=== PATIENT | female | born 1960 | race Caucasian/White ===

== ENCOUNTER → 2017-07-03 | Outpatient (CLI) | payer MEDICARE ==
[~2017-07-03] MED LIST: CLONAZEPAM 1MG T1 MG PO; METHADONE 10MG10 MG PO; NEURONTIN800 MG PO; NEXIUM20 MG PO; NEXIUM40 MG PO; SILVADENE1% TP; SYNTHROID 0.00.05 MG PO; TIZANIDINE HCL 44 MG PO; XARELTO10 MG PO; ZANAFLEX4 MG; ZANAFLEX4 MG PO
--- NOTE | 2017-07-03 11:21 | CARDIOVASCULAR REPORT ---
"Venous Exam Indications: 729.5 Pain in limb. IMPRESSIONS 1. There is no evidence of significant Reflux. 2. Moderate, acute, occlusive deep vein thrombosis involving the right popliteal vein, right gastrocnemius, and right soleal History: Right lower extremity pain. Edema of the right leg. PMH: Deep vein thrombosis. Patient was taking Xarelto until August 2016. Anticoagulants were stopped due to blood loss/GI bleed at that time. Risk factors: Current tobacco use. Hypertension. Right lower extremity venous duplex evaluation. Doppler flow study including spectral analysis, color and bryan scale imaging. Location: Vascular laboratory. Patient status: Outpatient. CRITICAL FINDINGS - Reported to: Cherrie Iglesias - Read back and verified. - 07/03/17 - 11:10 - RLE positive for DVT in POPV, gastrocnemius veins Tables: Venous flow and imaging: + + + + |Location |Overall |Flow properties | + + + + |Right common femoral |Patent |Normal phasicity; | | | |spontaneous; normal | | | |augmentation; compressible | + + + + |Right saphenofemoral |Patent |Compressible | |junction | | | + + + + |Right profunda femoral |Patent |Compressible | + + + + |Right femoral |Patent |Normal phasicity; | | | |spontaneous; normal | | | |augmentation; compressible | + + + + |Right greater saphenous |Patent |Normal phasicity; | | | |spontaneous; normal | | | |augmentation; compressible | + + + + |Right popliteal |Totally occluded|Absent; no augmentation; | | | |noncompressible | + + + + |Right posterior tibial |Patent |Compressible | + + + + |Right peroneal |Patent |Compressible | + + + + |Right gastrocnemius |Totally occluded|Noncompressible | + + + + |Right soleal |Totally occluded|Noncompressible | + + + + (Report amended ) Electronically signed by: Alen Granados [id number]"
== END ==
LOC: RT 10:30
DX: M79.661 Pain in right lower leg (principal)

== ENCOUNTER 2017-07-05 07:38 | Outpatient (CLI) | payer MEDICARE | END 2017-07-05 09:48 | LOC: ACC 07:38 | DX: I82.409 Acute embolism and thrombosis of unspecified deep veins of unspecified lower extremity (principal); Z79.01 Long term (current) use of anticoagulants; Z51.81 Encounter for therapeutic drug level monitoring | CPT/HCPCS: G0463 ==

== ENCOUNTER 2017-07-08 08:27 | Outpatient (CLI) | payer MEDICARE | END 2017-07-08 11:48 | LOC: ACC 08:27 | DX: I82.409 Acute embolism and thrombosis of unspecified deep veins of unspecified lower extremity (principal); Z79.01 Long term (current) use of anticoagulants; Z51.81 Encounter for therapeutic drug level monitoring | CPT/HCPCS: G0463 ==

== ENCOUNTER 2017-07-29 09:58 | Outpatient (CLI) | payer MEDICARE | END 2017-07-29 15:38 | LOC: ACC 09:58 | DX: I82.811 Embolism and thrombosis of superficial veins of right lower extremity (principal); Z79.01 Long term (current) use of anticoagulants; Z51.81 Encounter for therapeutic drug level monitoring ==

== ENCOUNTER 2017-08-09 08:20 | Outpatient (CLI) | payer MEDICARE | END 2017-08-09 15:44 | LOC: ACC 08:20 | DX: I82.811 Embolism and thrombosis of superficial veins of right lower extremity (principal); Z79.01 Long term (current) use of anticoagulants; Z51.81 Encounter for therapeutic drug level monitoring | CPT/HCPCS: G0463 ==

== ENCOUNTER → 2017-09-13 | Outpatient (CLI) | payer MEDICARE ==
--- NOTE | 2017-09-13 15:17 | CARDIOVASCULAR REPORT ---
"Venous Exam Indications: 729.5 Pain in limb. IMPRESSIONS 1. There is no evidence of significant Reflux. 2. Deep vein thrombosis involving the right popliteal vein Disease regression from the study of 03-Jul-2017. History: PMH: Deep vein thrombosis. Right lower extremity venous duplex evaluation. Doppler flow study including spectral analysis, color and bryan scale imaging. Location: Vascular laboratory. Patient status: Outpatient. CRITICAL FINDINGS - Reported to: ELIZABETH - Read back and verified. - 09/13/17 - 1515 - IMPROVED DVT STATUS Tables: Venous flow and imaging: + + + + |Location |Overall |Flow properties | + + + + |Right common femoral |Patent |Normal phasicity; | | | |spontaneous; normal | | | |augmentation; | | | |compressible | + + + + |Right saphenofemoral |Patent |Compressible | |junction | | | + + + + |Right profunda femoral |Patent |Compressible | + + + + |Right femoral |Patent |Normal phasicity; | | | |spontaneous; normal | | | |augmentation; | | | |compressible | + + + + |Right greater saphenous |Patent |Normal phasicity; | | | |spontaneous; normal | | | |augmentation; | | | |compressible | + + + + |Right popliteal |Partially occluded|Diminished phasicity; | | | |spontaneous; normal | | | |augmentation; | | | |compressible | + + + + |Right posterior tibial |Patent |Compressible | + + + + |Right peroneal |Patent |Compressible | + + + + |Right gastrocnemius |Patent |Compressible | + + + + |Right soleal |Patent |Compressible | + + + + (Report amended ) Electronically signed by: Mat Cortés [id number]"
== END ==
LOC: ACC 08:00 → RAD 08:00 → ACC 13:20
DX: M79.661 Pain in right lower leg (principal); I82.811 Embolism and thrombosis of superficial veins of right lower extremity; Z79.01 Long term (current) use of anticoagulants; Z51.81 Encounter for therapeutic drug level monitoring
CPT/HCPCS: G0463

== ENCOUNTER 2017-09-27 07:32 | Outpatient (CLI) | payer MEDICARE ==
[2017-09-27 08:49] LABS: LYMPH # 1.3 K/mm3 (0.7-4.5); LYMPH % 22.5 % (10-50.0)
[2017-09-27 08:52] LABS: HEMOGLOBIN 14.1 g/dL (12.2-16.2)
--- NOTE | 2017-09-27 09:26 | RADIOLOGY REPORT PS360 ---
CHEST(2 VIEWS-NOT PORTABLE) HISTORY: TOB USE, CHEST PAIN, FATIGUE ORDERING PHYSICIAN: Sam Marquez MD PATIENT AGE: 56 years FINDINGS: The cardiomediastinal silhouette and pulmonary vascularity are within normal limits. The lungs are clear without infiltrates, suspicious nodules, or pleural effusions. No acute bony abnormalities. There is a calcified granuloma in the left upper lobe. There is mild hyperinflation with hyperlucency of the upper chest consistent with obstructive chronic bronchitis. There is mild lumbar scoliosis convex left and there are multiple sutures in the left upper quadrant. IMPRESSION: 1. No change with no acute finding from 04/17/2014 2. COPD and old granulomatous disease
[2017-09-27 09:47] LABS: BILIRUBIN, INDIRECT 0.11 mg/dL (0-0.9); BUN 34 mg/dL (7-18); GFR (ESTIMATED) 57 ML/MIN (59-)
== END 2017-09-27 15:54 ==
LOC: ACC 07:32 → RAD 07:32 → ACC 08:00
PROVIDERS: Internal Medicine
DX: I82.811 Embolism and thrombosis of superficial veins of right lower extremity (principal); Z79.01 Long term (current) use of anticoagulants; Z51.81 Encounter for therapeutic drug level monitoring; I70.213 Atherosclerosis of native arteries of extremities with intermittent claudication, bilateral legs; I10 Essential (primary) hypertension; E78.5 Hyperlipidemia, unspecified; R07.9 Chest pain, unspecified; R53.83 Other fatigue; Z72.0 Tobacco use
CPT/HCPCS: G0463

== ENCOUNTER → 2017-10-04 | Outpatient (CLI) | payer MEDICARE ==
--- NOTE | 2017-10-04 13:25 | RADIOLOGY REPORT PS360 ---
PROCEDURE: 2-D M-mode and color Doppler study INDICATIONS FOR THE TEST: Chest pain X COPD Heart Murmur Tobacco SmokingX Palpitations Fatigue Syncope Edema HypertensionXDiabetes Mellitus Rheumatic Fever SOBXDOEXObesityXHyperlipidemia Family History HD Additional History PATIENT INFORMATION HEIGHT: 61 WEIGHT:181 GENDER: Female B/P:120/79 2-D/M-MODE INTERPRETATION: 2-D MEASUREMENTS OBSERVED VALUES IN CMS Right Ventricular Dimension (RVDd) 2.0 Interventricular Septum (Thickness)(IVsd) 1.0 Left Ventricular Internal Dimensions(LVIDd) 5.7 Left Ventricular Posterior Wall (Thickness)(LVPWd) 1.0 Aortic Root 2.8 Aortic Cusp Separation 1.9 Left Atrial Dimensions (LAD) 3.1 2D 1. Left atrium is normal size, left ventricle is normal size, there is no concentric left ventricular hypertrophy, visually estimated ejection fraction 55% with no obvious regional wall motion abnormality. 2. The right atrium and right ventricle are normal size and contractility. 3. The aortic valve is minimally thickened and fibrosed. 4. The mitral and tricuspid valvular grossly normal. 5.The pulmonic valve is poorly visualized. 6. No significant pericardial effusion noted. DOPPLER INTERROGATION: Doppler interrogation of the aortic, mitral and tricuspid valvular presence of mild mitral and tricuspid regurgitation, tricuspid and jet is insufficient for calculation of the right ventricular systolic pressure, diastolic parameters are within normal range. CONCLUSION: 1. Normal left ventricular size, preserved left ventricular systolic function, visually estimated ejection fraction 55% with no obvious regional wall motion abnormality, diastolic parameters are within normal range. 2. Mild mitral and tricuspid addition 3. No significant pericardial effusion noted.
== END ==
LOC: RT 07:55
DX: I70.213 Atherosclerosis of native arteries of extremities with intermittent claudication, bilateral legs (principal); R07.9 Chest pain, unspecified; I82.811 Embolism and thrombosis of superficial veins of right lower extremity; I10 Essential (primary) hypertension; E78.5 Hyperlipidemia, unspecified; R53.83 Other fatigue; Z72.0 Tobacco use